=== PATIENT | male | born 1990 | race Caucasian/White ===

== ENCOUNTER 2019-10-07 09:42 | Emergency (ER) | payer BC, SELFPAY ==
[2019-10-07 10:20] VITALS: BP 138/89; PULSE 89; RESP 18; TEMP 37; O2SAT 98
--- NOTE | 2019-10-07 11:03 | ED.URI ---
HPI - URI/Sore Throat General Chief Complaint: Upper Respiratory Infection Stated Complaint: ear pain sore throat cough Time Seen by Provider: 10/07/19 10:55 Source: patient Mode of arrival: ambulatory Limitations: no limitations History of Present Illness HPI Narrative: Vance Delcid is a 29 yo male with no PMH with throat pain, laryngitis, and R ear pain x 3 days - Related Data Allergies Allergy/AdvReac Type Severity Reaction Status Date / Time No Known Allergies Allergy Verified 10/07/19 11:13 Review of Systems Review of Systems: Narrative: CONSTITUTIONAL: Denies fever, chills, sweats. EYES: Denies visual changes, redness, discharge. ENT: has rhinorrhea, congestion, sore throat, right otalgia. CARDIOVASCULAR: Denies chest pain, palpitations, edema. RESPIRATORY: Denies dyspnea, wheezing, mild cough GASTROINTESTINAL: Denies abdominal pain, nausea, vomiting, diarrhea. GENITOURINARY: Denies dysuria, hematuria, abnormal discharge SKIN: Denies rash or itching. MUSCULOSKELETAL: Denies acute back pain, joint pain, or myalgia. NEUROLOGIC: Denies numbness, or focal weakness. PSYCHIATRIC: Denies anxiety or depression. PMFSH Social History Social History Smoking status: Never smoker Alcohol intake: current Comments At time of signature, I agree with nursing past medical, surgical, social and family history. There is no relevant family history pertinent to the presenting complaint. Exam Narrative: Exam Narrative: GENERAL: This is a well-nourished, well-developed patient, in moderate distress. HEAD: normocephalic, atraumatic. EYES: Sclera clear/white. Vision is grossly intact. EARS: External ears normal, L auditory canals clear, R some cerumen but canal erythema with exquisite tenderness TMs without perforation. Hearing grossly intact. NOSE: External nose normal with nasal discharge, nares without redness, has rhinorrhea. THROAT: Mucous membranes moist, posterior pharynx erythema, tonsillar edema NECK: Neck supple, non-tender without lymphadenopathy, CARDIOVASCULAR: Regular rate and rhythm without murmurs, gallops, or rubs. RESPIRATORY: Clear to auscultation. Breath sounds equal bilaterally. No wheezes, rales, or rhonchi. GASTROINTESTINAL: Abdomen soft, non-tender, nondistended. SKIN: warm, intact with no suspicious lesions or rash, good texture and turgor. NEURO: awake, alert, and oriented to person, place and time. There were no obvious focal neurologic abnormalities. Steady gait EXTREMITIES: Normal range of motion. No edema. No calf tenderness. Negative Homans sign bilaterally. BACK: Nontender without deformity or crepitance. No flank tenderness. Course Course Emergency Course: Strep negative Due to range of symptoms and severity treating with eardrops as well as penicillin MDM - URI/Sore Throat Differential Diagnosis Differential diagnosis: Likely otitis media, pharyngitis and other Lab Data Labs: Strep Screen Presumptive Negative *(Reference Range: Negative)* Discharge Plan Discharge Clinical Impression: Pharyngitis Qualifiers: Pharyngitis/tonsillitis etiology: unspecified etiology Qualified Code(s): J02.9 - Acute pharyngitis, unspecified Acute ear pain Qualifiers: Laterality: right Qualified Code(s): H92.01 - Otalgia, right ear Patient Disposition: Home, Self-Care Condition: Stable Instructions: Antibiotic Form, Pharyngitis (ED), Earache (ED) Prescriptions: New penicillin V potassium 500 mg tablet 500 mg PO Q8H Qty: 30 RF: 0 Cortisporin-TC 3.3-3-10-0.5 mg/mL drops,suspension 4 drop RIGHT EAR TID Qty: 10 RF: 0 codeine-guaifenesin 10-100 mg/5 mL liquid 10 ml PO Q4-6H PRN (Reason: cough) Qty: 180 RF: 0 Follow-up/Referrals: UNKNOWN,DOCTOR [Primary Care Provider] - Stand Alone Forms: Work/School Release IP Time of Disposition: 11:34
== END 2019-10-07 11:35 | disposition home or self-care (01) ==
PROVIDERS: Emergency Provider Nurse Practitioner
DX: J02.9 Acute pharyngitis, unspecified (principal); H92.01 Otalgia, right ear; Z86.14 Personal history of Methicillin resistant Staphylococcus aureus infection
CPT/HCPCS: 87081; 87880; 99203; A9270; G0463